=== PATIENT | female | born 1955 | race Caucasian/White ===

== ENCOUNTER 2023-02-13 15:39 | Emergency (ER) | payer OTHER ==
[~2023-02-13] VITALS: Ht 149.9 cm; Wt 92.1 kg
[2023-02-13 15:49] VITALS: BP 155/87; PULSE 73; RESP 16; TEMP 98; O2SAT 96
[2023-02-13 16:30] LABS: APPEARANCE,URINE CLEAR (CLEAR); BILIRUBIN,URINE NEGATIVE (NEGATIVE); BLOOD, URINE NEGATIVE (NEGATIVE); COLOR,URINE YELLOW (YELLOW); LEUKOCYTE ESTERASE ,URINE 1+ (NEGATIVE); NITRITE, URINE NEGATIVE (NEGATIVE); PH,URINE 6.5 (5.0-9.0); PROTEIN,URINE NEGATIVE (NEGATIVE); UGLUCOSE NEGATIVE (NEGATIVE); UROBILINOGEN,URINE 0.2 EU/dL (0.2 - 1)
[2023-02-13 16:38] LABS: BACTERIA,URINE 0-2 /HPF (None Seen); MUCUS,URINE 1+ /LPF (None Seen); RBC,URINE 0 /HPF (0-5); SQUAMOUS EPITHELIAL CELL,UR 0-3 (FEW) /LPF (0-3 (FEW)); WBC,URINE 0-5 /HPF (0-5)
[2023-02-13] MEDS ORDERED: [UNRECOGNIZED DRUG - CODE] RC (17:32)
[2023-02-13] MEDS ORDERED: DOCU-299 PO (17:32)
[2023-02-13] MEDS ORDERED: POLY17PD72 PO (17:32)
== END 2023-02-13 17:54 | disposition home or self-care (01) ==
LOC: MED 15:39
DX: K64.9 Unspecified hemorrhoids (principal); K59.00 Constipation, unspecified; I10 Essential (primary) hypertension; E03.9 Hypothyroidism, unspecified; Z79.899 Other long term (current) drug therapy
CPT/HCPCS: 81001; 87086; 99283

== ENCOUNTER 2023-11-05 17:17 | Emergency (ER) | payer OTHER ==
[~2023-11-05] VITALS: Ht 139.7 cm; Wt 90.3 kg
[~2023-11-05 17:17] MED LIST: DOCU-299 PO; POLY17PD72 PO; [UNRECOGNIZED DRUG - CODE] RC
[2023-11-05 17:26] VITALS: BP 123/66; PULSE 79; RESP 18; TEMP 97.7; O2SAT 94
--- NOTE | 2023-11-05 18:09 | NUR ---
68 Y/O F WITH PMHX OF HTN PTS C/O S/P HEMHORROID SURG 05/10/23, RECTUM IS STARTING TO BLEED AGAIN, WOULD LIKE EVALUATION. VSS, NO SIGNS OF DISCOMFORT NOTED. PT AWAITING EVALUATION OF PROVIDER. PMH: HTN
[2023-11-05] MEDS ORDERED: MIRABULK PO (18:29)
[2023-11-05] MEDS ORDERED: HYDR25SU91 RC (18:29)
[2023-11-05 18:35] VITALS: BP 123/66; PULSE 79; RESP 18; TEMP 97.7; O2SAT 94
--- NOTE | 2023-11-05 18:36 | NUR ---
Patient discharged with v/s stable. Written and verbal after care instructions given and explained. Patient verbalized understanding. Ambulatory with steady gait. All questions addressed prior to discharge. Advised to follow up with PMD.
--- NOTE | 2023-11-05 19:07 | NUR ---
Chart checked and completed. The patient's care was reviewed and supervised by OSITO CURRIE RN.
== END 2023-11-05 18:36 | disposition home or self-care (01) ==
LOC: MED 17:17
DX: K64.4 Residual hemorrhoidal skin tags (principal); I10 Essential (primary) hypertension; Z86.39 Personal history of other endocrine, nutritional and metabolic disease; Z79.899 Other long term (current) drug therapy
CPT/HCPCS: 99282